=== PATIENT | female | born 1985 | race African-American/Black ===

== ENCOUNTER 2021-01-19 20:41 | Emergency (ER) | payer OTHER ==
[2021-01-19 20:47] VITALS: BP 115/79; PULSE 103; TEMP 98.2; BMI 22.1
[2021-01-19 22:07] LABS: BASO % 0.4 % (0-2.0); EOS % 4.1 % (0-4.5); HEMATOCRIT 32.4 % (32.4-45.2); LYMPH % 29.1 % (8-40); MCH 31.9 pg (25.7-33.7); MCHC 33.8 g/dl (32.0-36.0); MEAN CELL VOLUME 94.5 fl (80-96); MEAN PLT VOLUME 7.3 fl (7.5-11.1); MONO % 11.5 % (3.8-10.2); NEUT % 54.9 % (42.8-82.8); PLATELET COUNT 282 K/MM3 (134-434); RBC 3.43 M/mm3 (3.60-5.2); RDW 13.3 % (11.6-15.6); WHITE BLOOD COUNT 9.1 K/mm3 (4.0-10.0)
[2021-01-19 22:28] LABS: PH,URINE 5.5 (5.0-8.0); URINE APPEARANCE CLEAR; URINE BILIRUBIN NEGATIVE (NEGATIVE); URINE COLOR YELLOW; URINE GLUCOSE (UA) NEGATIVE (NEGATIVE); URINE KETONE TRACE (NEGATIVE); URINE LEUK ESTERASE NEGATIVE (NEGATIVE); URINE NITRITE NEGATIVE (NEGATIVE); URINE PROTEIN TRACE (NEGATIVE); URINE UROBILINOGEN 0.2 mg/dL (0.2-1.0)
[2021-01-19 22:37] LABS: ALBUMIN 3.6 g/dl (3.4-5.0); BLOOD UREA NITROGEN 12.3 mg/dL (7-18); CALCIUM 9.3 mg/dL (8.5-10.1)
[2021-01-19 22:41] LABS: CREATININE 0.8 mg/dL (0.55-1.3)
[2021-01-19 22:42] LABS: BILIRUBIN,TOTAL 0.2 mg/dL (0.2-1); TOT PROT 7.8 g/dl (6.4-8.2)
[2021-01-19 22:49] LABS: EPI CELLS 17.4 /uL (0-25.1); HYALINE CASTS 3.21 /uL (0-3.1); URINE BACTERIA 95.5 /uL (0-1359); URINE RBC 9.7 /uL (0-23.9); URINE WBC 4.7 /uL (0-25.8)
== END 2021-01-20 01:48 | disposition home or self-care (01) ==
LOC: JER 20:41
DX: O20.9 Hemorrhage in early pregnancy, unspecified (principal); Z3A.01 Less than 8 weeks gestation of pregnancy
CPT/HCPCS: 36415; 76817-TC; 80053; 81003; 84702; 85025; 86850; 86900; 86901; 99284-25

== ENCOUNTER 2021-08-05 21:00 | Observation (INO) | payer OTHER ==
[2021-08-05] MEDS ORDERED: ELECTROLYTE-148 SOLN 500 ML IV ONE ×2 (22:30)
[2021-08-05] MEDS ORDERED: ELECTROLYTE-148 SOLN 1,000 ML IV SCH (23:30)
[2021-08-06] MEDS ORDERED: NIFEdipine 10 MG CAPSULE (FP) PO SCH (02:30)
[2021-08-06] MEDS ORDERED: NIFEdipine 10 MG CAPSULE (FP) ONE (02:58)
[2021-08-06 09:25] VITALS: BP 98/66; PULSE 70; TEMP 98.4
== END 2021-08-06 09:00 | disposition home or self-care (01) ==
LOC: JDEL 21:00 → JERBED 08-06 05:00
PROVIDERS: ADMIT Obstetrics & Gynecology; ATTEND Obstetrics & Gynecology
PROC: 4A1HXCZ Monitoring of Products of Conception, Cardiac Rate, External Approach (ICD-10-PCS; principal; 2021-08-06)
PROC: 3E033GC Introduction of Other Therapeutic Substance into Peripheral Vein, Percutaneous Approach (ICD-10-PCS; 2021-08-06)
DX: Z34.03 Encounter for supervision of normal first pregnancy, third trimester (principal); Z3A.34 34 weeks gestation of pregnancy
CPT/HCPCS: 36415; 82731; 87086; 99285-25; G0378

== ENCOUNTER 2021-08-06 22:20 | Inpatient (IN) | payer OTHER ==
[2021-08-06] MEDS ORDERED: BETAMET ACET/BETAMET NA PH 30 MG/5 ML VIAL ONE (22:43)
[2021-08-06] MEDS ORDERED: BUTORPHANOL TARTRATE 1 MG/ML VIAL IVPB ONE (22:44)
[2021-08-06] MEDS ORDERED: PROMETHAZINE HCL 25 MG/1 ML VIAL IVPUSH ONE (22:44)
[2021-08-06] MEDS ORDERED: AMPICILLIN - 2 GM in SODIUM CHLORIDE 100 ML IVPB ONE (22:48)
[2021-08-06] MEDS ORDERED: BETAMET ACET/BETAMET NA PH 30 MG/5 ML VIAL IM ONE (22:50)
[2021-08-06] MEDS: ELECTROLYTE-148 SOLN 1,000 ML IV SCH (23:00)
[2021-08-06 23:06] VITALS: BMI 26.4
[2021-08-06 23:25] LABS: BASO % 0.5 % (0-2.0); EOS % 1.2 % (0-4.5); HEMATOCRIT 27.5 % (32.4-45.2); HEMOGLOBIN 9.2 GM/dL (10.7-15.3); LYMPH % 23.9 % (8-40); MCHC 33.4 g/dl (32.0-36.0); MEAN CELL VOLUME 95.8 fl (80-96); MEAN PLT VOLUME 8.7 fl (7.5-11.1); MONO % 9.2 % (3.8-10.2); NEUT % 65.2 % (42.8-82.8); PLATELET COUNT 209 10^3/uL (134-434); RBC 2.87 M/mm3 (3.60-5.2); RDW 13.5 % (11.6-15.6); WHITE BLOOD COUNT 11.4 K/mm3 (4.0-10.0)
[2021-08-06 23:32] LABS: INR 0.88 (0.83-1.09); PROTHROMBIN TIME (PATIENT) 9.8 SEC (9.7-13.0)
[2021-08-06 23:34] LABS: ACTIVATED PTT 26.7 SECONDS (25.2-36.5)
[2021-08-06 23:36] LABS: CALCIUM 8.7 mg/dL (8.5-10.1)
[2021-08-06 23:37] LABS: ALBUMIN 2.1 g/dl (3.4-5.0); BLOOD UREA NITROGEN 11.8 mg/dL (7-18)
[2021-08-06 23:40] LABS: CREATININE 0.7 mg/dL (0.55-1.3)
[2021-08-06 23:41] LABS: TOT PROT 6.3 g/dl (6.4-8.2)
[2021-08-06 23:42] LABS: BILIRUBIN,TOTAL 0.1 mg/dL (0.2-1)
[2021-08-07 02:15] LABS: SYPHILIS W/ RPR CONF NON-REACTIVE (NONREACTIVE)
[2021-08-07 02:44] LABS: HIV INTERPRETATION NEGATIVE (NEGATIVE)
[2021-08-07] MEDS: AMPICILLIN - 1 GM in SODIUM CHLORIDE 100 ML IVPB SCH ×8 (03:00→23:00)
[2021-08-07] MEDS ORDERED: AMPICILLIN SODIUM 1 GM VIAL ONE ×6 (03:17→23:10)
[2021-08-07] MEDS: ELECTROLYTE-148 SOLN 1,000 ML IV SCH ×2 (06:52→23:00)
[2021-08-07 08:23] LABS: POC NITRAZINE POS
[2021-08-07] MEDS ORDERED: FERRIC CARBOXYMALTOSE 750 MG in SODIUM CHLORIDE 250 ML IVPB ONE (19:42)
[2021-08-08] MEDS ORDERED: CITRIC ACID/SODIUM CITRATE 30 ML UNIT-DOSE CUP PO ONE (00:43)
[2021-08-08] MEDS: AMPICILLIN - 1 GM in SODIUM CHLORIDE 100 ML IVPB SCH ×4 (02:45→17:09)
[2021-08-08] MEDS ORDERED: AMPICILLIN SODIUM 1 GM VIAL ONE ×3 (03:02→15:37)
[2021-08-08] MEDS ORDERED: OXYTOCIN 20 UNITS in 0.9% NS 20 UNIT/1,000 ML INFUS.BAG IV ONE ×2 (05:23→06:42)
[2021-08-08] MEDS ORDERED: PHENYLEPHRINE HCL 10 MG/1 ML SINGLE DOSE VIAL ONE (05:24)
[2021-08-08] MEDS ORDERED: morphine SULFATE (PF) 1 MG/2 ML SYRINGE ONE (05:24)
[2021-08-08] MEDS ORDERED: ePHEDrine SULFATE 50 MG/1 ML AMPULE ONE (05:24)
[2021-08-08] MEDS ORDERED: PROPOFOL 20 ML ONE (05:26)
[2021-08-08] MEDS ORDERED: ceFAZolin SODIUM 1 GM VIAL ONE (05:33)
[2021-08-08] MEDS ORDERED: DEXAMETHASONE SOD PHOSPHATE 4 MG/1 ML VIAL ONE (05:38)
[2021-08-08] MEDS ORDERED: ONDANSETRON 4 MG/2 ML VIAL ONE (05:38)
[2021-08-08] MEDS ORDERED: HYDROmorphone *PCA* 10MG/50ML DISP.SYRIN ONE (06:09)
[2021-08-08] MEDS ORDERED: PCA PUMP NR ONE (06:10)
[2021-08-08 06:27] LABS: CORD BASE EXCESS -7.1 mmol/L (0-2); CORD HCO3 23.8 mmHg (20-29); CORD PCO2 58.9 mmHg (30-78); CORD pH 7.156 (7.14-7.44); CORD pH 7.19 (7.14-7.44)
[2021-08-08] MEDS ORDERED: ACETAMINOPHEN INJECTION 100 ML IVPB ONE (06:41)
[2021-08-08] MEDS ORDERED: ONDANSETRON 4 MG/2 ML VIAL IVPUSH PRN (06:51)
[2021-08-08] MEDS ORDERED: HYDROmorphone *PCA* 10MG/50ML DISP.SYRIN PCA SCH (07:00)
[2021-08-08] MEDS ORDERED: AMPICILLIN SODIUM 2 GM VIAL ONE (12:12)
[2021-08-08] MEDS ORDERED: SODIUM CHLORIDE 100 ML IVPB ONE ×3 (12:12→15:38)
[2021-08-08] MEDS ORDERED: METHYLERGONOVINE MALEATE 0.2 MG/1 ML AMP IM PRN (14:32)
[2021-08-08] MEDS ORDERED: ACETAMINOPHEN 325 MG TABLET (FP) PO PRN (14:32)
[2021-08-08] MEDS ORDERED: oxyCODONE HCL 5 MG TABLET PO PRN ×2 (19:22)
[2021-08-08 19:34] LABS: MCH 32.2 pg (25.7-33.7); MCHC 33.3 g/dl (32.0-36.0); MEAN CELL VOLUME 96.7 fl (80-96); MEAN PLT VOLUME 8.6 fl (7.5-11.1); PLATELET COUNT 146 10^3/uL (134-434); RBC 2.17 M/mm3 (3.60-5.2); RDW 13.6 % (11.6-15.6); WHITE BLOOD COUNT 22.9 K/mm3 (4.0-10.0)
[2021-08-08] MEDS ORDERED: PCA PUMP KEY 1 EACH EACH ONE (20:22)
[2021-08-08 20:58] LABS: ANISOCYTOSIS 0; MACROCYTOSIS 0
[2021-08-09] MEDS: IBUPROFEN 600 MG TABLET (FP) PO PRN ×3 (00:42→22:05)
[2021-08-09 08:58] LABS: HEMATOCRIT 20.1 % (32.4-45.2); MCH 32.8 pg (25.7-33.7); MCHC 33.5 g/dl (32.0-36.0); MEAN CELL VOLUME 97.9 fl (80-96); PLATELET COUNT 145 10^3/uL (134-434); RBC 2.05 M/mm3 (3.60-5.2); RDW 13.6 % (11.6-15.6); WHITE BLOOD COUNT 21.6 K/mm3 (4.0-10.0)
[2021-08-09 09:03] LABS: HEMOGLOBIN 6.7 GM/dL (10.7-15.3)
[2021-08-09] MEDS: SIMETHICONE 80 MG TAB.CHEW (FP) PO PRN ×2 (09:20→22:05)
[2021-08-09] MEDS: ENOXAPARIN NA (PORCINE) 40 MG/0.4 ML DISP.SYRIN SQ SCH (11:12)
[2021-08-09] MEDS ORDERED: BISACODYL 10 MG SUPP.RECT RC PRN (14:32)
[2021-08-10] MEDS: IBUPROFEN 600 MG TABLET (FP) PO PRN (10:02)
[2021-08-10] MEDS: SIMETHICONE 80 MG TAB.CHEW (FP) PO PRN (10:02)
[2021-08-10] MEDS: ENOXAPARIN NA (PORCINE) 40 MG/0.4 ML DISP.SYRIN SQ SCH (10:02)
[2021-08-11] MEDS: SIMETHICONE 80 MG TAB.CHEW (FP) PO PRN (01:39)
[2021-08-11] MEDS: IBUPROFEN 600 MG TABLET (FP) PO PRN ×3 (01:40→18:04)
[2021-08-11 07:11] LABS: MCH 32.8 pg (25.7-33.7); MCHC 33.1 g/dl (32.0-36.0); MEAN CELL VOLUME 98.9 fl (80-96); MEAN PLT VOLUME 8.8 fl (7.5-11.1); PLATELET COUNT 153 10^3/uL (134-434); RBC 2.02 M/mm3 (3.60-5.2); RDW 14.1 % (11.6-15.6); WHITE BLOOD COUNT 22.2 K/mm3 (4.0-10.0)
[2021-08-11 07:33] LABS: HEMOGLOBIN 6.6 GM/dL (10.7-15.3)
[2021-08-11 09:00] LABS: ANISOCYTOSIS 1+; MACROCYTOSIS 1+; OVALOCYTE 1+; PLATELET ESTIMATE DECREASED
[2021-08-11] MEDS: ENOXAPARIN NA (PORCINE) 40 MG/0.4 ML DISP.SYRIN SQ SCH (10:07)
[2021-08-11] MEDS: ELECTROLYTE-148 SOLN 1,000 ML IV SCH ×2 (22:07→22:08)
[2021-08-11] MEDS: OXYTOCIN 20 UNITS in 0.9% NS 20 UNIT/1,000 ML INFUS.BAG IV SCH (22:07)
[2021-08-12] MEDS: IBUPROFEN 600 MG TABLET (FP) PO PRN ×2 (00:21→09:26)
[2021-08-12] MEDS: ELECTROLYTE-148 SOLN 1,000 ML IV SCH (02:00)
[2021-08-12 08:40] LABS: HEMATOCRIT 28.5 % (32.4-45.2); HEMOGLOBIN 9.7 GM/dL (10.7-15.3); MCH 32.6 pg (25.7-33.7); MCHC 34.1 g/dl (32.0-36.0); MEAN CELL VOLUME 95.8 fl (80-96); MEAN PLT VOLUME 8.2 fl (7.5-11.1); PLATELET COUNT 167 10^3/uL (134-434); RBC 2.97 M/mm3 (3.60-5.2); RDW 14.2 % (11.6-15.6); WHITE BLOOD COUNT 19.6 K/mm3 (4.0-10.0)
[2021-08-12 09:13] VITALS: BP 124/76; PULSE 59; TEMP 98.5
[2021-08-12] MEDS: ENOXAPARIN NA (PORCINE) 40 MG/0.4 ML DISP.SYRIN SQ SCH (09:26)
[2021-08-12 11:42] LABS: ANISOCYTOSIS 0; HELMET CELLS 0; HOWELL-JOLLY BODIES 0; MACROCYTOSIS 0; OVALOCYTE 0; PLATELET ESTIMATE NORMAL; ROULEAU 0; SICKELED CELLS 0; TARGET CELLS 0; TEAR DROP CELLS 0; TOXIC GRANULATION 0
== END 2021-08-12 18:20 | disposition home or self-care (01) | DRG 786 ==
LOC: JLDR 22:20 → J3W 08-08 08:20
PROVIDERS: ADMIT Obstetrics & Gynecology; ATTEND Obstetrics & Gynecology
PROC: 10D00Z1 Extraction of Products of Conception, Low, Open Approach (ICD-10-PCS; principal; 2021-08-08)
PROC: 30233N1 Transfusion of Nonautologous Red Blood Cells into Peripheral Vein, Percutaneous Approach (ICD-10-PCS; 2021-08-11)
DX: O36.8330 Maternal care for abnormalities of the fetal heart rate or rhythm, third trimester, not applicable or unspecified (principal); O60.14X0 Preterm labor third trimester with preterm delivery third trimester, not applicable or unspecified; O42.913 Preterm premature rupture of membranes, unspecified as to length of time between rupture and onset of labor, third trimester; O99.02 Anemia complicating childbirth; O41.8X30 Other specified disorders of amniotic fluid and membranes, third trimester, not applicable or unspecified; O46.8X3 Other antepartum hemorrhage, third trimester; O26.893 Other specified pregnancy related conditions, third trimester; D72.829 Elevated white blood cell count, unspecified; Z3A.34 34 weeks gestation of pregnancy; Z37.0 Single live birth
CPT/HCPCS: 36415; 36430; 36511; 36600; 80053; 82803; 83986-QW; 85025; 85027; 85610; 85730; 86762; 86780; 86850; 86900; 86901; 86922; 87340; 87389; 88307-TC; 96372; C9803; J0131; J1439; P9038; P9058; U0003; U0005